=== PATIENT | male | born 1935 | race Caucasian/White ===

== ENCOUNTER 2017-12-02 20:06 | Emergency (ER) | payer MEDICARE, BC ==
[2017-12-02] MEDS ORDERED: IPRATROPIUM-ALBUTEROL 3 ML NEB INHALATION STA (20:36)
[2017-12-02] MEDS ORDERED: methylPREDNISolone SOD SUCCI 125 MG/2 ML VIAL IV STA (20:39)
--- NOTE | 2017-12-02 20:39 | ED ---
SOB HPI - General Source: patient, family, RN notes reviewed Mode of arrival: wheelchair Limitations: no limitations - History of Present Illness MD Complaint: shortness of breath <Bolivar Austin - Last Filed: 12/02/17 20:53> <Ehsan Campbell - Last Filed: 12/02/17 21:58> - General Chief Complaint: Shortness of Breath Stated Complaint: GLOIRA Time Seen by Provider: 12/02/17 20:25 - History of Present Illness Initial Comments: This 82-year-old male history of asthma who was brought in by his due to the appearance of difficulty breathing today he's had a cough with some green phlegm he's had rhinorrhea he developed a fever today though apparently he's had some difficulty breathing for last week or so he has any chills or sweats chest pain or other symptoms. (Bolivar Austin) - Related Data Home Medications Medication Instructions Recorded Confirmed Pantoprazole Sodium [Protonix] 40 mg PO DAILY 06/15/14 12/02/17 Iron 28 Mg 28 mg PO BID 12/11/14 12/02/17 Ascorbic Acid [Vitamin C] 2,000 mg PO DAILY 12/02/17 12/02/17 Vit C/E/Zn/Coppr/Lutein/Zeaxan 1 cap PO BID 12/02/17 12/02/17 [Preservision Areds 2 Softgel] Allergies Allergy/AdvReac Type Severity Reaction Status Date / Time cephalexin monohydrate Allergy Severe Diarrhea Verified 12/02/17 21:34 [From Keflex] Review of Systems ROS Other: All systems not noted in ROS Statement are negative. <Bolivar Austin - Last Filed: 12/02/17 20:53> ROS Other: All systems not noted in ROS Statement are negative. <Ehsan Campbell - Last Filed: 12/02/17 21:58> ROS Statement: Those systems with pertinent positive or pertinent negative responses have been documented in the HPI. Past Medical History Past Medical History: Cancer, GERD/Reflux Additional Past Medical History / Comment(s): Hx of Prostate cancer with radiation, psoriasis.,States occasional wheezing. PASSED OUT AND HBG WAS LOW AND HE RECEIVED BLOOD TRANSFUSION-NOW TAKES IRON., BACK PAIN. PT STATES "BLACK HEAD RIGHT NIPPLE". History of Any Multi-Drug Resistant Organisms: None Reported Past Surgical History: Appendectomy, Ear Surgery, Hernia Repair, Prostate Surgery Additional Past Surgical History / Comment(s): RT ING HERNIA, OCTAVIO CATARACTS, TUBE LEFT EAR. Past Anesthesia/Blood Transfusion Reactions: Motion Sickness, Postoperative Nausea & Vomiting (PONV) Additional Past Anesthesia/Blood Transfusion Reaction / Comment(s): HX OF BLOOD TRANSFUSION - NO PROBLEMS Past Psychological History: No Psychological Hx Reported Smoking Status: Never smoker Past Alcohol Use History: None Reported Past Drug Use History: None Reported - Past Family History Father Family Medical History: Cancer <Bolivar Austin - Last Filed: 12/02/17 20:53> General Exam Limitations: no limitations General appearance: alert, in no apparent distress Head exam: Present: atraumatic, normocephalic, normal inspection Eye exam: Present: normal appearance, PERRL, EOMI. Absent: scleral icterus, conjunctival injection, periorbital swelling ENT exam: Present: mucous membranes moist, other (Boggy nasal mucosa) Neck exam: Present: normal inspection. Absent: tenderness, meningismus, lymphadenopathy Respiratory exam: Present: wheezes, decreased breath sounds, other (Expiratory wheezes). Absent: respiratory distress, rales, rhonchi, stridor Cardiovascular Exam: Present: regular rate, normal rhythm, normal heart sounds. Absent: systolic murmur, diastolic murmur, rubs, gallop, clicks GI/Abdominal exam: Present: soft, normal bowel sounds. Absent: distended, tenderness, guarding, rebound, rigid Extremities exam: Present: normal inspection, full ROM, normal capillary refill. Absent: tenderness, pedal edema, joint swelling, calf tenderness Back exam: Present: normal inspection Neurological exam: Present: alert, oriented X3, CN II-XII intact Psychiatric exam: Present: normal affect, normal mood Skin exam: Present: warm, dry, intact, normal color. Absent: rash <Bolivar Austin - Last Filed: 12/02/17 20:53> <Ehsan Campbell - Last Filed: 12/02/17 21:58> - General Exam Comments Initial Comments: This is a well-developed well-nourished awake alert oriented 3 male (Bolivar Austin) Course <oBlivar Austin - Last Filed: 12/02/17 20:53> <Ehsan Campbell - Last Filed: 12/02/17 21:58> Vital Signs 0412/02/17 12/02/17 20:16 20:51 21:00 Temperature 100.7 F H Pulse Rate 72 80 82 Respiratory 19 16 16 Rate Blood Pressure 171/73 O2 Sat by Pulse 96 Oximetry - Reevaluation(s) Reevaluation #1: 12/02/17 20:40 The patient's care will be endorsed to Dr. Campbell at our shift change. (Bolivar Austin) Medical Decision Making - EKG Data -: EKG Interpreted by Me EKG shows normal: sinus rhythm (EKG shows normal sinus rhythm a 71 appear interval 158 QRS 106 daily since QTC of 380/412 st-t wave changes.) <Bolivar Austin - Last Filed: 12/02/17 20:53> - Lab Data Result diagrams: 12/02/17 20:30 12/02/17 20:30 <Ehsan Campbell - Last Filed: 12/02/17 21:58> - Medical Decision Making I receive this patient has a sign out pending the last couple laboratory tests. Following this I reviewed the results with the patient and reevaluated him. He is feeling like he would like to go home. He understands further care and follow-up for influenza B. Return parameters discussed and he'll return if he is not having any improvement or if he is having any worsening. (Ehsan Campbell) - Lab Data Lab Results 12/02/17 12/02/17 12/02/17 Range/Units 20:30 20:30 20:30 WBC 5.3 (3.8-10.6) k/uL RBC 4.31 (4.30-5.90) m/uL Hgb 13.6 (13.0-17.5) gm/dL Hct 40.8 (39.0-53.0) % MCV 94.7 (80.0-100.0) fL MCH 31.5 (25.0-35.0) pg MCHC 33.3 (31.0-37.0) g/dL RDW 14.2 (11.5-15.5) % Plt Count 144 L (150-450) k/uL Neutrophils % 80 % Lymphocytes % 11 % Monocytes % 5 % Eosinophils % 1 % Basophils % 1 % Neutrophils # 4.2 (1.3-7.7) k/uL Lymphocytes # 0.6 L (1.0-4.8) k/uL Monocytes # 0.2 (0-1.0) k/uL Eosinophils # 0.0 (0-0.7) k/uL Basophils # 0.0 (0-0.2) k/uL PT (9.0-12.0) sec INR (<1.2) APTT (22.0-30.0) sec Sodium 139 (137-145) mmol/L Potassium 3.9 (3.5-5.1) mmol/L Chloride 106 (98-107) mmol/L Carbon Dioxide 22 (22-30) mmol/L Anion Gap 11 mmol/L BUN 18 (9-20) mg/dL Creatinine 0.70 (0.66-1.25) mg/dL Est GFR (CKD-EPI)AfAm >90 (>60 ml/min/1.73 sqM) Est GFR (CKD-EPI)NonAf 87 (>60 ml/min/1.73 sqM) Glucose 133 H (74-99) mg/dL Calcium 8.6 (8.4-10.2) mg/dL Magnesium 1.8 (1.6-2.3) mg/dL Total Bilirubin 0.4 (0.2-1.3) mg/dL AST 28 (17-59) U/L ALT 34 (21-72) U/L Alkaline Phosphatase 124 (38-126) U/L Total Creatine Kinase 89 (55-170) U/L CK-MB (CK-2) 0.8 (0.0-2.4) ng/mL CK-MB (CK-2) Rel Index 0.9 Troponin I <0.012 (0.000-0.034) ng/mL NT-Pro-B Natriuret Pep pg/mL Total Protein 5.9 L (6.3-8.2) g/dL Albumin 3.2 L (3.5-5.0) g/dL Influenza Type A RNA (Not Detectd) Influenza Type B (PCR) (Not Detectd) 12/02/17 12/02/17 12/02/17 Range/Units 20:30 20:30 20:30 WBC (3.8-10.6) k/uL RBC (4.30-5.90) m/uL Hgb (13.0-17.5) gm/dL Hct (39.0-53.0) % MCV (80.0-100.0) fL MCH (25.0-35.0) pg MCHC (31.0-37.0) g/dL RDW (11.5-15.5) % Plt Count (150-450) k/uL Neutrophils % % Lymphocytes % % Monocytes % % Eosinophils % % Basophils % % Neutrophils # (1.3-7.7) k/uL Lymphocytes # (1.0-4.8) k/uL Monocytes # (0-1.0) k/uL Eosinophils # (0-0.7) k/uL Basophils # (0-0.2) k/uL PT 10.7 (9.0-12.0) sec INR 1.1 (<1.2) APTT 24.7 (22.0-30.0) sec Sodium (137-145) mmol/L Potassium (3.5-5.1) mmol/L Chloride (98-107) mmol/L Carbon Dioxide (22-30) mmol/L Anion Gap mmol/L BUN (9-20) mg/dL Creatinine (0.66-1.25) mg/dL Est GFR (CKD-EPI)AfAm (>60 ml/min/1.73 sqM) Est GFR (CKD-EPI)NonAf (>60 ml/min/1.73 sqM) Glucose (74-99) mg/dL Calcium (8.4-10.2) mg/dL Magnesium (1.6-2.3) mg/dL Total Bilirubin (0.2-1.3) mg/dL AST (17-59) U/L ALT (21-72) U/L Alkaline Phosphatase (38-126) U/L Total Creatine Kinase (55-170) U/L CK-MB (CK-2) (0.0-2.4) ng/mL CK-MB (CK-2) Rel Index Troponin I (0.000-0.034) ng/mL NT-Pro-B Natriuret Pep 353 pg/mL Total Protein (6.3-8.2) g/dL Albumin (3.5-5.0) g/dL Influenza Type A RNA Not Detected (Not Detectd) Influenza Type B (PCR) Detected H (Not Detectd) Disposition <Bolivar Austin - Last Filed: 12/02/17 20:53> <Ehsan Campbell - Last Filed: 12/02/17 21:58> Clinical Impression: Influenza B Disposition: HOME SELF-CARE Condition: Fair Instructions: Influenza (ED) Referrals: Arcenio Palomares DO [Primary Care Provider] - 1-2 days
[2017-12-02 20:51] LABS: Basophils % (A) 1 %; Eosinophils % (A) 1 %; HCT 40.8 % (39.0-53.0); HGB 13.6 gm/dL (13.0-17.5); Lymphocytes # (A) 0.6 k/uL (1.0-4.8); Lymphocytes % (A) 11 %; MCH 31.5 pg (25.0-35.0); MCHC 33.3 g/dL (31.0-37.0); MCV 94.7 fL (80.0-100.0); Mean Platelet Volume 7.2; Monocytes # (A) 0.2 k/uL (0-1.0); Monocytes % (A) 5 %; Neutrophils # (A) 4.2 k/uL (1.3-7.7); Neutrophils % (A) 80 %; Platelet Count 144 k/uL (150-450); RBC 4.31 m/uL (4.30-5.90); RDW 14.2 % (11.5-15.5); WBC 5.3 k/uL (3.8-10.6)
[2017-12-02 21:04] LABS: ALT 34 U/L (21-72); AST 28 U/L (17-59); Albumin 3.2 g/dL (3.5-5.0); Alkaline Phosphatase 124 U/L (38-126); Anion Gap 11 mmol/L; Blood Urea Nitrogen 18 mg/dL (9-20); Calcium 8.6 mg/dL (8.4-10.2); Carbon Dioxide 22 mmol/L (22-30); Chloride 106 mmol/L (98-107); Glucose 133 mg/dL (74-99); INR 1.1 (<1.2); Magnesium 1.8 mg/dL (1.6-2.3); Partial Thromboplastin Time 24.7 sec (22.0-30.0); Potassium 3.9 mmol/L (3.5-5.1); Prothrombin Time 10.7 sec (9.0-12.0); Sodium 139 mmol/L (137-145); Total Bilirubin 0.4 mg/dL (0.2-1.3); Total Protein 5.9 g/dL (6.3-8.2)
[2017-12-02 21:05] LABS: Creatine Kinase 89 U/L (55-170)
[2017-12-02 21:19] LABS: Creatine Kinase MB 0.8 ng/mL (0.0-2.4); Troponin I <0.012 ng/mL (0.000-0.034)
--- NOTE | 2017-12-02 21:31 | XR ---
EXAMINATION: XR chest 2V DATE AND TIME: 12/02/2017 9:20 PM ORDERING PROVIDER: Bolivar Austin MD CLINICAL INDICATION: difficulty breathing TECHNIQUE: PA and lateral COMPARISON: 07/02/2010 FINDINGS: There is a coarse reticular pattern throughout the lungs bilaterally, likely chronic interstitial allison g change. The differential for this finding is mild interstitial phase pulmonary edema, but the forme r is suspected radiographically. The lungs are otherwise clear. The pleural spaces are negative. The cardiac silhouette is not enlarged. The mediastinal and pleural silhouettes are unremarkable. The skeletal structures are intact without focal findings. The soft tissues are unremarkable. IMPRESSION: NO DEFINITE ACUTE PROCESS.
[2017-12-02 22:14] VITALS: BP 152/70; PULSE 87; RESP 18; TEMP 99.4
== END 2017-12-02 22:16 | disposition home or self-care (01) ==
LOC: EC 20:06
DX: J10.1 Influenza due to other identified influenza virus with other respiratory manifestations (principal); R06.02 Shortness of breath; K21.9 Gastro-esophageal reflux disease without esophagitis; Z85.46 Personal history of malignant neoplasm of prostate; Z79.899 Other long term (current) drug therapy; Z88.1 Allergy status to other antibiotic agents
CPT/HCPCS: 36415; 94640; 93005; 83880; 80053; 82550; 82553; 83735; 84484; 85025; 85610; 85730; 87040; 87502; 71046; 99285; 96374; J2930

== ENCOUNTER 2018-06-06 11:40 | Emergency (ER) | payer MEDICARE, BC ==
[2018-06-06 11:49] VITALS: BP 168/69; PULSE 56; RESP 18; TEMP 98.1
[2018-06-06] MEDS ORDERED: DIPH,PERTUS(ACELL)TETVAC-LF 0.5 ML VIAL IM ONE (11:55)
[2018-06-06] MEDS ORDERED: LIDOCAINE 1% INJ 10MG/ML (20 ML MDV) SQ ONE (12:11)
--- NOTE | 2018-06-06 12:13 | ED ---
General Adult HPI - General Chief complaint: Wound/Laceration Stated complaint: LAC on LT hand Time Seen by Provider: 06/06/18 11:52 Source: patient, RN notes reviewed, old records reviewed Mode of arrival: ambulatory Limitations: no limitations - History of Present Illness Initial comments: 83-year-old male presenting with laceration to the left dorsal hand. Patient was moving some heavy objects, trapped his hand between the cart and a metal object. He has a approximately 2 similar laceration on the dorsal surface of the left hand. He has no complaints of significant pain. He is able to move all of his fingers normally. Uncertain of his last tetanus vaccine. - Related Data Home Medications Medication Instructions Recorded Confirmed Pantoprazole Sodium [Protonix] 40 mg PO DAILY 06/15/14 06/06/18 Allergies Allergy/AdvReac Type Severity Reaction Status Date / Time cephalexin monohydrate Allergy Severe Diarrhea Verified 06/06/18 12:25 [From [employer] [place]] Review of Systems ROS Statement: Those systems with pertinent positive or pertinent negative responses have been documented in the HPI. ROS Other: All systems not noted in ROS Statement are negative. Past Medical History Past Medical History: Cancer, GERD/Reflux Additional Past Medical History / Comment(s): Hx of Prostate cancer with radiation, psoriasis.,States occasional wheezing. PASSED OUT AND HBG WAS LOW AND HE RECEIVED BLOOD TRANSFUSION-NOW TAKES IRON., BACK PAIN. PT STATES "BLACK HEAD RIGHT NIPPLE". amd History of Any Multi-Drug Resistant Organisms: None Reported Past Surgical History: Appendectomy, Ear Surgery, Hernia Repair, Prostate Surgery Additional Past Surgical History / Comment(s): RT ING HERNIA, OCTAVIO CATARACTS, TUBE LEFT EAR. Past Anesthesia/Blood Transfusion Reactions: Motion Sickness, Postoperative Nausea & Vomiting (PONV) Additional Past Anesthesia/Blood Transfusion Reaction / Comment(s): HX OF BLOOD TRANSFUSION - NO PROBLEMS Past Psychological History: No Psychological Hx Reported Smoking Status: Never smoker Past Alcohol Use History: None Reported Past Drug Use History: None Reported - Past Family History Father Family Medical History: Cancer General Exam Limitations: no limitations General appearance: alert, in no apparent distress Head exam: Present: atraumatic, normocephalic Eye exam: Present: normal appearance, PERRL Respiratory exam: Present: normal lung sounds bilaterally. Absent: respiratory distress Cardiovascular Exam: Present: regular rate, normal rhythm Extremities exam: Present: other ((: Patient has 2 cm laceration on the dorsal surface between the third and fourth digits. No underlying tendon injury visualized. Range of motion all fingers is within normal limits. No significant bleeding.) Course Vital Signs 06/06/18 11:45 Temperature 98.1 F Pulse Rate 56 L Respiratory 18 Rate Blood Pressure 168/69 O2 Sat by Pulse 98 Oximetry Procedures - Laceration Laceration #1 Consent Obtained: verbal consent Time Out Performed: Yes Indication: laceration Site: hand Description: flap Depth: simple, single layer Anesthetic Used: lidocaine 1% Pre-repair: wound explored, irrigated extensively, deep structures intact Type of Sutures: nylon Size of Sutures: 5-0 Number of Sutures: 3 Technique: simple, interrupted Patient Tolerated Procedure: well Medical Decision Making - Medical Decision Making 83-year-old male with laceration left dorsal hand. 2 cm in length. This was repaired with 5-0 nylon suture. Wound is cleansed, irrigated. Patient will return for suture removal, return with signs of infection. Disposition Clinical Impression: Laceration Disposition: HOME SELF-CARE Condition: Good Instructions: Care For Your Stitches (ED), Laceration (ED) Additional Instructions: Please return for suture removal in 10-14 days. Is patient prescribed a controlled substance at d/c from ED?: No Referrals: Arcenio Palomares DO [Primary Care Provider] - 1-2 days Time of Disposition: 12:12
== END 2018-06-06 12:42 | disposition home or self-care (01) ==
LOC: EC 11:40
DX: S61.412A Laceration without foreign body of left hand, initial encounter (principal); K21.9 Gastro-esophageal reflux disease without esophagitis; Z85.46 Personal history of malignant neoplasm of prostate; Z23 Encounter for immunization; Z79.899 Other long term (current) drug therapy; Z88.1 Allergy status to other antibiotic agents; W23.1XXA Caught, crushed, jammed, or pinched between stationary objects, initial encounter; Y93.89 Activity, other specified
CPT/HCPCS: 90715; 99283; 12001; 90471; J2001

== ENCOUNTER → 2021-11-18 | Outpatient (CLI) | payer MEDICARE, BC ==
--- NOTE | 2021-11-19 08:31 | MM ---
Reason for exam: clinical finding. History: Patient history of other cancer. Indicated problem(s): lump or thickening in both breasts. Physical Findings: A clinical breast exam by your physician is recommended on an annual basis and results should be correlated with mammographic findings. MG Diagnostic Mammo w CAD OCTAVIO Bilateral CC and MLO view(s) were taken. The breast tissue is extremely dense which could obscure a lesion on mammography. There is no discrete abnormality including area of concern. Pattern appears typical gynecomastia. Correlate with medications. ASSESSMENT: Incomplete: need additional imaging evaluation, BI-RAD 0 RECOMMENDATION: Ultrasound of both breasts.
--- NOTE | 2021-11-19 08:34 | USB ---
Reason for exam: additional evaluation requested from abnormal screening. History: Patient history of other cancer. Physical Findings: A clinical breast exam by your physician is recommended on an annual basis and results should be correlated with mammographic findings. US Breast Limited BILAT Right limited breast ultrasound including focal area of concern, retroareolar and axilla demonstrates a 4.1 x 2.7 x 1.2cm solid, hypoechoic lesion at the posterior nipple. Left limited breast ultrasound including focal area of concern, retroareolar and axilla demonstrates a 3.2 x 3.1 x 1.1cm solid, hypoechoic lesion at the posterior nipple. ASSESSMENT: Benign, BI-RAD 2 RECOMMENDATION: Clinical management of both breasts. Manage patient on a clinical basis.
== END | disposition home or self-care (01) ==
LOC: RADMAMWWP 14:48
PROVIDERS: ATTEND Family Medicine
DX: N63.0 Unspecified lump in unspecified breast (principal)
CPT/HCPCS: 77066